=== PATIENT | male | born 1980 | race Caucasian/White ===

== ENCOUNTER 2019-06-09 10:11 | Emergency (ER) | payer OTHER, SELFPAY ==
--- NOTE | ~2019-06-09 | XR_ITS ---
EXAMINATION: XR foot RT min 3V DATE: 06/09/2019 10:34 INDICATION: Right foot pain, initial encounter TECHNIQUE: Dorsoplantar, lateral, and 2 oblique views of the right foot were obtained. COMPARISON: None. FINDINGS: There is an acute, traumatic, comminuted fracture of the first proximal phalanx. Soft tissu e swelling surrounds the fracture. No additional acute osseous findings are evident. There are change s of fourth toe and fourth metatarsal head amputation. There is deformity at the fifth metatarsophala ngeal joint which could reflect prior surgery or infection. Dorsal and plantar calcaneal enthesophyte s are noted. IMPRESSION: 1. Comminuted fracture of the first proximal phalanx. Reviewed, dictated and finalized at location A.
[2019-06-09 10:14] VITALS: BP 163/76; PULSE 87; RESP 20; TEMP 37; O2SAT 99
--- NOTE | 2019-06-09 10:26 | ED.GENADULT ---
HPI - General Adult General Chief complaint: Extremity Injury, Lower Stated complaint: INJURED R TOE/FOOT Time Seen by Provider: 06/09/19 10:27 Source: patient Mode of arrival: ambulatory Limitations: no limitations History of Present Illness HPI narrative: This is a 38 years old male presents to the office for an evaluation of right foot injury two days ago. He accidentally kicked his cabinet and noticed a discoloration of his foot the next night. States, pain is minimal due to neuropathy; however he noticed blister and redness start forming on his foot last night. NO treatment prior to arrival. Admits to history of right toe Amputation in 2013 due to cellulitis/osteomyelitis secondary to diabetes. Stated he does have an orthopedic surgeon(Dr. Zepeda) who Amputate his toe in 2013. TD is up to date per patient. Related Data Home Medications Medication Instructions Recorded Confirmed aspirin 06/09/19 atenolol 100 mg PO DAILY 06/09/19 06/09/19 empagliflozin [Jardiance] 25 mg PO DAILY 06/09/19 06/09/19 insulin lispro protamin-lispro 75 unit SUBCUT QAM 06/09/19 06/09/19 [Humalog Mix 75-25 KwikPen] lisinopril 40 mg PO DAILY 06/09/19 06/09/19 pioglitazone [Actos] 30 mg PO DAILY 06/09/19 06/09/19 Allergies Allergy/AdvReac Type Severity Reaction Status Date / Time No Known Allergies Allergy Mild Verified 06/09/19 10:24 Review of Systems Review of Systems: Narrative: CONSTITUTIONAL: Denies fever. Reports chills CARDIOVASCULAR: Denies chest pain RESPIRATORY: Denies dyspnea GASTROINTESTINAL: Denies nausea GENITOURINARY: Denies urinary symptoms SKIN: Reports redness of right foot with blister forming on great toe MUSCULOSKELETAL: Reports right great toe pain with movement with discoloration NEUROLOGIC: Reports decrease sensation in his feet (normal) [facility] Past Medical History Medical History (Updated 06/09/19 @ 11:13 by MELA Shrestha) Diabetes mellitus, type II HLD (hyperlipidemia) HTN (hypertension) Neuropathy Right toe amputee right fourth toe Family History Family History Other Carcinoma of colon Heart disease Hypertension Social History Social History Smoking status: Never smoker Comments At time of signature, I agree with nursing past medical, surgical, social and family history. There is no relevant family history pertinent to the presenting complaint. Exam Narrative: Exam Narrative: GENERAL: This is a well-nourished, well-developed patient, in no apparent distress. NEURO: awake, alert, and oriented to person, place and time. There were no obvious focal neurologic abnormalities. EXTREMITIES: Right affected lateral ankle not swollen but there is tenderness and swelling over the dorsum of the foot, first toe noted significant ecchymosis with swelling and tenderness to palpation, range of motion limited secondary to pain. No deformity on affected toe. The skin is intact; however there is small blister form at the base of first great toe. Right fourth toe appears missing with fifth toe appears medially deviated (normal per patient since surgery). Course Vital Signs Vital signs: Vital Signs Temperature 98.6 F 06/09/19 10:14 Pulse Rate 87 06/09/19 10:14 Respiratory Rate 06/09/19 10:14 Blood Pressure 163/76 H 06/09/19 10:14 Pulse Oximetry 99 06/09/19 10:14 Temperature 98.6 F 06/09/19 10:14 Pulse Rate 87 06/09/19 10:14 Respiratory Rate 06/09/19 10:14 Blood Pressure 163/76 H 06/09/19 10:14 Pulse Oximetry 99 06/09/19 10:14 Medical Decision Making MDM Narrative Medical decision making narrative: I reviewed x-ray results with the patient, patient states that he should be able to take a picture of his foot along with x-ray report and email it to his orthopedic surgeon (Dr. Zepeda at [facility]) as soon as he gets home. Elevated BP noted:
== END 2019-06-09 11:00 | disposition home or self-care (01) ==
PROVIDERS: Emergency Provider Nurse Practitioner
DX: S92.411A Displaced fracture of proximal phalanx of right great toe, initial encounter for closed fracture (principal); W22.09XA Striking against other stationary object, initial encounter; L03.115 Cellulitis of right lower limb; E78.5 Hyperlipidemia, unspecified; I10 Essential (primary) hypertension; E11.40 Type 2 diabetes mellitus with diabetic neuropathy, unspecified; Z89.421 Acquired absence of other right toe(s)
CPT/HCPCS: 73630; 99203; G0463

== ENCOUNTER 2023-01-25 19:08 | Emergency (ER) | payer OTHER, SELFPAY ==
--- NOTE | ~2023-01-25 | XR_ITS ---
XR chest 1V DATE: 01/25/2023 19:48 INDICATION: Seizure. Vomiting. TECHNIQUE: AP chest COMPARISON: None Right lung appears clear. No pleural effusion or pneumothorax is noted. Heart size is not optimally evaluated on AP projection because of magnification. FINDINGS: There is suboptimal expansion of the lung jacobo. There is suggestion of diffuse mild left lung infiltrate, most prominent in the lower lobe. IMPRESSION: Suboptimal single AP view with limited lung expansion; suggestion of left lung infiltrate Reviewed, dictated and finalized at location A. MOTIVE LOT ATTENDANT IMPRESSION: Suboptimal single AP view with limited lung expansion; suggestion o f left lung infiltrate
--- NOTE | ~2023-01-25 | CT_ITS ---
EXAMINATION: CT brain wo con DATE: 01/25/2023 19:46 INDICATION: Seizure TECHNIQUE: Computed tomography (CT) of the head was performed without intravenous contrast. The mA wa s adjusted according to patient size. Iterative reconstruction technique was employed. Exam dose: 68 1.00 mGy-cm total exam DLP. COMPARISON: None FINDINGS: No intracranial mass lesion or hemorrhage or cerebrovascular accident, midline shift or mas s effect. No subdural or epidural hematoma. There is patchy soft tissue thickening the ethmoid air cells, right greater than left. There is sever e mucoperiosteal thickening of the right maxillary sinus. There is nodular mild Thickening of the left maxillary sinus. Mild soft tissue thickening is noted at the sphenoid sinuses as well. The mastoid air cells are normally developed and aerated. No fracture or bone destruction of the cranial vault. IMPRESSION: No skull fracture or acute intracranial finding Reviewed, dictated and finalized at Location A. Reviewed, dictated and finalized at location A. KERER HAND
--- NOTE | ~2023-01-25 | XR_ITS ---
EXAMINATION: XR chest 1V portable INDICATION: Cardiac arrest TECHNIQUE: Portable AP chest at 2247 hours COMPARISON: 1946 hours FINDINGS: The lung volumes are low. There is a mild diffuse interstitial pattern. The cardiomediastin al silhouette is stable. No pleural effusion or pneumothorax. IMPRESSION: 1. Mild pulmonary edema. Reviewed, dictated and finalized at location F. ROBE MISTRESS IMPRESSION: 1. Mild pulmonary edema.
--- NOTE | 2023-01-25 19:11 | ECG_ITS ---
Measurements Intervals [place] Rate: 116 P: 36 MT: 154 QRS: -31 QRSD: 93 T: 92 QT: 335 QTc: 466 Interpretive Statements SINUS TACHYCARDIA LEFT AXIS DEVIATION PATTERN CONSISTENT WIT PULMONARY DISEASE NONSPECIFIC T-WAVE ABNORMALITY- HIGH LATERAL LEADS ABNORMAL ECG NO PREVIOUS ECG AVAILABLE FOR COMPARISON Electronically Signed On 01-25-2023 20:05:04 RESTORATIVE COORDINATOR by Myke Green D.O.
[2023-01-25 19:15] VITALS: PULSE 115; RESP 25; TEMP 37; O2SAT 100
[2023-01-25 19:22] VITALS: PULSE 115
--- NOTE | 2023-01-25 19:24 | PC.NURSE ---
Patient is now presenting A&Ox4, denies pain, or SOB
[2023-01-25 19:26] LABS: Glucose Point of Care > 500 mg/dl (65-105)
[2023-01-25] MEDS: SODIUM CHLORIDE 0.9% IV 2,000 ML 999 ML IV CONT (19:31)
[2023-01-25 19:35] VITALS: O2SAT 100
[2023-01-25 19:35] LABS: Basophils Percent Auto 0.4 % (0.2-1.2); Eosinophils Absolute Auto 0.2 K/mm3 (0-0.3); Eosinophils Percent Auto 1.5 % (0-4.4); Hematocrit 40.1 % (42.0-52.0); Hemoglobin 13.5 g/dL (14.0-18.0); Immature Granulocyte Absolute 0.05 K/mm3 (0.00-0.031); Immature Granulocyte Percent A 0.5 % (0-0.5); Lymphocytes Absolute Auto 2.49 K/mm3 (0.9-3.2); Lymphocytes Percent Auto 22.5 % (18.3-44.2); Mean Corpuscular HGB Conc 33.7 g/dl (32-36); Mean Corpuscular Hemoglobin 27.1 pg (26-34); Mean Corpuscular Volume 80.4 fl (80-100); Mean Platelet Volume 10.4 fl (7.4-10.4); Monocytes Absolute Auto 0.6 K/mm3 (0.1-0.6); Monocytes Percent Auto 5.5 % (2.6-8.5); Neutrophils Absolute Auto 7.7 K/mm3 (1.3-6.7); Neutrophils Percent Auto 69.6 % (45.5-73.1); Platelet Count Result 272 k/mm3 (150-375); Red Blood Count 4.99 M/mm3 (4.6-6.20); Red Cell Distribution Width 13.7 % (11.5-14.5); White Blood Count 11.1 K/mm3 (4.5-10.0)
[2023-01-25 19:37] VITALS: O2SAT 100
--- NOTE | 2023-01-25 19:42 | PC.NURSE ---
Per patients significant other the patient normally has his blood sugar in control and is compliant with his diabetes regiment
[2023-01-25 19:44] LABS: Ethanol < 10 mg/dL (<10)
[2023-01-25 19:48] LABS: Alanine Aminotransferase 26 U/L (6-50); Albumin Level 2.4 g/dL (3.5-5.1); Alkaline Phosphatase 86 U/L (38-126); Anion Gap 8 mmol/L (8-16); Aspartate Amino Transferase 35 U/L (17-59); Bilirubin,Total 0.4 mg/dL (0.2-1.3); Blood Urea Nitrogen 25 mg/dL (9-20); Calcium 7.8 mg/dL (8.4-10.2); Carbon Dioxide 18 mmol/L (22-30); Chloride 105 mmol/L (98-107); Estimated CRCL calculation 53 ml/min; Estimated Glomerular Filt Rate 28; Glucose 603 mg/dL (65-110); Magnesium 1.9 mg/dL (1.6-2.3); Potassium 3.7 mmol/L (3.4-5.0); Sodium 131 mmol/L (137-145)
[2023-01-25 19:59] LABS: NT Pro B Type Natriuretic Pept 6370 pg/mL (19.9-100)
--- NOTE | 2023-01-25 20:23 | ECG_ITS ---
Measurements Intervals [place] Rate: 108 P: 15 CA: 132 QRS: -29 QRSD: 87 T: 38 QT: 337 QTc: 453 Interpretive Statements SINUS TACHYCARDIA VOLTAGE CRITERIA FOR LVH POOR R WAVE PROGRESSION, ANTERIOR LEADS BORDERLINE ST-T WAVE ABNORMALITY- HIGH LATERAL LEADS ABNORMAL ECG COMPARED TO ECG 01/25/2023 19:17:46 NO SIGNIFICANT CHANGES Electronically Signed On 01-26-2023 10:27:33 LEAD BI DEVELOPER by Myke Green D.O.
[2023-01-25] MEDS: FUROSEMIDE INJ 40 MG/4 ML VIAL IV PUSH (20:24)
[2023-01-25] MEDS: MAG HYDROX/AL HYDROX/SIMETH 30 ML UDC PO (20:32)
[2023-01-25] MEDS: ASPIRIN 81 MG CHEWABLE TABLET 324 MG PO (20:32)
[2023-01-25 20:43] LABS: Appearance Urine Clear (Clear); Bacteria Urine None Seen /hpf; Bilirubin Urine Negative (Negative); Blood Urine 2+ (Negative); Color Urine Yellow (Yellow); Glucose Urine UA 3+ mg/dL (Negative); Ketones Urine Negative (Negative); Leukocyte Esterase Ur Negative LEU/UL (Negative); Nitrate Urine Negative (Negative); Protein Urine 4+ mg/dL (Negative); Squamous Epithelial Cell Urine None seen /hpf (Few); Urobilinogen Urine 0.2 mg/dL (<2.0); WBC Urine 0-5 /hpf
[2023-01-25 20:45] LABS: Add Urine Microscopic? YES
[2023-01-25 20:57] LABS: Benzodiazepines Screen Urine Negative (Negative)
[2023-01-25 21:02] LABS: Barbiturate Screen Urine Negative (Negative)
[2023-01-25 21:03] LABS: Amphetamine Screen Urine Negative (Negative); Cannabinoid Screen Urine Negative (Negative); Cocaine Screen Urine Negative (Negative); Methadone Screen Urine Negative (Negative); Opiate Screen Urine Negative (Negative); Phencyclidine Screen Urine Negative (Negative)
[2023-01-25 21:29] VITALS: BP 183/113; PULSE 109; RESP 24; O2SAT 100
--- NOTE | 2023-01-25 21:35 | PC.NURSE ---
Patient requested something to drink or ice chips. Notified EDP Dr. Castro who was okay with the patient getting ice chips.
--- NOTE | 2023-01-25 21:35 | PC.NURSE ---
Patient stated that his heartburn is coming back and he is now getting a headache. Notified EDP Dr. Castro
--- NOTE | 2023-01-25 22:06 | PC.NURSE ---
Patient's blood pressure still elevated. Last reading at 2200 was 231/130, EDP Dr. Castro aware.
[2023-01-25] MEDS: ACETAMINOPHEN 500 MG TABLET 1000 MG PO (22:11)
[2023-01-25] MEDS: FAMOTIDINE 20 MG/2 ML VIAL IV PUSH (22:13)
--- NOTE | 2023-01-25 22:28 | ECG_ITS ---
Measurements Intervals [place] Rate: 129 P: 42 ND: 160 QRS: -29 QRSD: 97 T: 78 QT: 307 QTc: 450 Interpretive Statements SINUS TACHYCARDIA INCOMPLETE RIGHT BUNDLE BRANCH BLOCK DELAYED PRECORDIAL R/S TRANSITION NONSPECIFIC ST-T WAVE ABNORMALITY- HIGH LATERAL LEADS BASELINE WANDER- III, AVL, V2 ABNORMAL ECG COMPARED TO ECG 01/25/2023 20:35:06 HEART RATE HAS INCREASED INCOMPLETE RIGHT BUNDLE-BRANCH BLOCK NOW PRESENT Electronically Signed On 01-27-2023 19:14:18 PROCESS EQUIPMENT OPERATOR by Myke Green D.O.
[2023-01-25] MEDS: MIDAZOLAM HCL (*CRX) 2 MG/2 ML VIAL 5 MG IV PUSH (22:37)
--- NOTE | 2023-01-25 22:40 | PC.NURSE ---
Addendum entered by Guido Akbar RN 01/26/23 00:38: When nursing staff went into patient's room he was saying he had a cramp and then his arms went numb. At this point patient began to seize and having tremors. Patient was then put on side and call for assistance to other ED staff was yelled out for. RUBEN Hernandez came into room and assisted patient to side. RUBEN Hernandez and significant other of patient noticed that the patient's face began to turn blue. At this point EDP Dr. Castro came into the room and noticed the ECG monitor was reading Vtac. At this point Dr. Castro called for a code and pads were placed on the patient and chest compressions began. Patient was having spontaneous respiration, but coughing up red sputum. Patient's rhythm went from Vtac to sinus tac to asystole to sinus tac. Patient then was incoherent and began violently flailing around. Dr. Castro verbally ordered 5mg Versed IVP. Patient slowly began to come to A&Ox4 again. Patient states he remembers having the cramp in his leg and going numb, but other than does not recall anything. Original Note: This RN in room when RUBEN Lora, called out for MD at bedside and saw patient turned to L side in what appeared seizure like tremors. Pts screaming his face is turning blue, his face is blue! MD Matthew, then walked in room and patient placed in supine position. No femoral pulse noted. Asystole on monitor. CPR began and crash cart pulled to room. After roughly 20 seconds pt began blowing bubbles of blood and sputum out of his mouth and pulse felt. Suction utilized, spontaneous respirations noted. Crash cart in room and patient placed on pads. Security at bedside to assist with restraining patient as he was post- ictal and screaming and attempting to get out of bed. Verbal orders given for versmatthew- nicola Dutta. This RN administered meds and left room while Guido MIRANDA, still at bedside.
[2023-01-25] MEDS: levETIRAcetam IV 4,500 MG in DEXTROSE 5% 100 ML 870 MG IVPB (22:43)
--- NOTE | 2023-01-25 22:48 | ED.GENADULT ---
HPI - General Adult General Chief complaint: Seizure <Willis Castro MD - Last Filed: 01/26/23 05:12> Stated complaint: POST ICTAL COMBATIVE SZ <Willis Castro MD - Last Filed: 01/26/23 05:12> Time Seen by Provider: 01/25/23 19:10 <Willis Castro MD - Last Filed: 01/26/23 05:12> History of Present Illness HPI narrative: This is a 42-year-old male history of hypertension, diabetes, and TIA presenting with a loss of consciousness. Family at a restaurant. He when out car he told felt like he was going down. Patient said he felt like he had vertigo symptoms. He then lost consciousness. EMS was called and the patient was combative and postictal. Patient had loss of bladder control at that time. No tongue biting. No history of seizures. The patient required Versed the field. When he was brought to the emergency department he had returned to his baseline mental status and had no complaints at this time. <Willis Castro MD - Last Filed: 01/26/23 05:12> Related Data Home medications: Home Medications Medication Instructions Recorded Confirmed aspirin 81 mg tablet,delayed 06/09/19 release atenolol 100 mg tablet 100 mg PO DAILY 06/09/19 06/09/19 empagliflozin 25 mg tablet 25 mg PO DAILY 06/09/19 06/09/19 (Jardiance) insulin lispro protamine-lispro 75 unit subcut QAM 06/09/19 06/09/19 100 unit/mL (75-25) subcutaneous pen (Humalog Mix 75-25 KwikPen) lisinopril 40 mg tablet 40 mg PO DAILY 06/09/19 06/09/19 pioglitazone 30 mg tablet (Actos) 30 mg PO DAILY 06/09/19 06/09/19 <Willis Castro MD - Last Filed: 01/26/23 05:12> Allergies/adverse reactions: Allergies Allergy/AdvReac Type Severity Reaction Status Date / Time No Known Allergies Allergy Mild Verified 06/09/19 10:24 <Willis Castro MD - Last Filed: 01/26/23 05:12> [facility] Past Medical History Medical History: Medical History Diabetes mellitus, type II HLD (hyperlipidemia) HTN (hypertension) Neuropathy Right toe amputee right fourth toe <Willis Castro MD - Last Filed: 01/26/23 05:12> Family History Family History: Family History Other Carcinoma of colon Heart disease Hypertension <Willis Castro MD - Last Filed: 01/26/23 05:12> Social History Social History: Social History Smoking status: Never smoker <Willis Castro MD - Last Filed: 01/26/23 05:12> Exam Narrative: APPEARANCE: No apparent distress. A&O times 3-4 Head: atraumatic. EYES: EOMI, NOSE: Atraumatic NECK: Trachea midline RESPIRATORY: No increased rate of breathing, scattered crackles CARDIOVASCULAR: tachycardic, +2 pitting edema of the right lower extremity ABDOMINAL: Non-distended, soft nontender no guarding or rebound MUSCULOSKELETAl: left BKA NEURO: Alert. Moving 4/4 extremities SKIN:: Warm, dry. Normal color PSYCHIATRIC: Normal affect Attempted point of care cardiothoracic echo but patient has poor windows and was unable to visualize any useful clinical info. <Willis Castro MD - Last Filed: 01/26/23 05:12> Course Reevaluation(s) Reevaluation #1: At time of sign-out patient was awaiting a bed at [facility]. A bad became available and patient was transferred without issue <Blake Ahn MD - Last Filed: 01/26/23 18:46> Vital Signs Vital signs: Vital Signs Temperature 98.6 F 01/25/23 19:15 Pulse Rate 115 H 01/25/23 19:15 Respiratory Rate 25 H 01/25/23 19:15 Pulse Oximetry 100 01/25/23 19:15 Oxygen Delivery Room Air 01/25/23 19:15 Temperature 97.7 F 01/26/23 11:41 Pulse Rate 85 01/26/23 12:37 Respiratory Rate 14 01/26/23 12:37 Blood Pressure 184/96 H 01/26/23 12:37 Pulse Oximetry 98 01/26/23 11:41 Oxygen Delivery Room Air 01/25/23 19:37 <Willis Castro
[2023-01-25 23:10] LABS: Troponin I 0.096 ng/mL (0.000-0.034)
[2023-01-25] MEDS: ONDANSETRON INJ 4 MG/2 ML VIAL 8 MG IV PUSH (23:54)
[2023-01-26] VITALS (21 sets, daily range): BP systolic 142–220; BP diastolic 69–152; PULSE 85–106; RESP 13–25; TEMP 36.5–37.1; O2SAT 92–100
--- NOTE | 2023-01-26 01:32 | PC.NURSE ---
Called [facility] at 00:15 about transfer and they spoke to Dr. Castro. Called again at 0101 since we had not received a call back as of then about an update or room assignment and they said they were pending for their hospitalist at [facility]. Still have not heard anything from them as of 133.
--- NOTE | 2023-01-26 01:57 | PC.NURSE ---
Delores from [facility] transfer center called and advised that patient has been accepted to [facility]. Delores will call us back with a bed or we will call Delores back at [phone] if patient has another episode.
--- NOTE | 2023-01-26 06:22 | PC.NURSE ---
Delores from [facility] transfer center called for an update. Per eDlores still waiting on a bed.
[2023-01-26 09:30] LABS: Glucose Point of Care 446 mg/dl (65-105)
[2023-01-26] MEDS: INSULIN HUMAN REGULAR (*BKC) 100 UNITS/ML IV PUSH (09:45)
--- NOTE | 2023-01-26 10:44 | PC.NURSE ---
0930-Bed assignment per [facility] call center, report given to Madhu MIRANDA for Med-Surg bed. Madhu contacted hospitalist at [facility] s/p report and hospitalist recommended pt go to ICU. 0975- [facility] call center updated on facility recommendation for ICU. 1030-Marcela now working for acceptance in ICU bed/provider.
[2023-01-26 10:49] LABS: Glucose Point of Care 377 mg/dl (65-105)
[2023-01-26] MEDS: LORazepam INJ (*CRX) 2 MG/ML VIAL 1 MG IV PUSH (11:15)
--- NOTE | 2023-01-26 11:27 | PC.NURSE ---
Pt accepted to [facility] ICU per Elaine, states awaiting bed assignment.
--- NOTE | 2023-01-26 13:29 | PC.NURSE ---
Elaine with the transfer center called to give us a bed for pt. Bed #693 in ICU at [facility]. Report given to RUBEN Singh at [phone]
== END 2023-01-26 14:09 | disposition short-term general hospital (02) ==
PROVIDERS: Emergency Provider Emergency Medicine
DX: R55 Syncope and collapse (principal); I50.9 Heart failure, unspecified; R77.8 Other specified abnormalities of plasma proteins; I11.0 Hypertensive heart disease with heart failure; E11.40 Type 2 diabetes mellitus with diabetic neuropathy, unspecified; E78.5 Hyperlipidemia, unspecified; Z86.73 Personal history of transient ischemic attack (TIA), and cerebral infarction without residual deficits; Z79.82 Long term (current) use of aspirin; Z79.85 Long-term (current) use of injectable non-insulin antidiabetic drugs; Z79.4 Long term (current) use of insulin; R00.0 Tachycardia, unspecified; R94.31 Abnormal electrocardiogram [ECG] [EKG]; I45.10 Unspecified right bundle-branch block; J81.1 Chronic pulmonary edema
CPT/HCPCS: 36415; 70450; 71045; 80053; 80307; 81001; 82948; 83735; 83880; 84484; 85025; 93005; 96361; 96374; 96375; 99285; A9270; J1815; J1940; J1953; J2060; J2250; J2405; J7030